=== PATIENT | male | born 1970 | race Two or more races ===

== ENCOUNTER 2020-11-13 16:29 | Inpatient (IN) | payer OTHER ==
[~2020-11-13] VITALS: Ht 177.8 cm; Wt 107.1 kg
[2020-11-13] MEDS ORDERED: fentaNYL CITRATE 100 MCG/2 ML VL ONE (16:38)
[2020-11-13] MEDS ORDERED: ANGIOMAX 250 MG VIAL IV ONE (16:38)
[2020-11-13] MEDS ORDERED: MIDAZOLAM HCL 1MG/1ML-2 ML VIAL ONE (16:38)
[2020-11-13] MEDS ORDERED: ATROPINE SULF 1 MG/10ml SYR ONE (16:38)
[2020-11-13] MEDS ORDERED: SODIUM CHL 0.9% 50 ML ONE (16:39)
[2020-11-13] MEDS ORDERED: EPINEPHrine HCL 1 MG/10 ML SYRG ONE (16:39)
[2020-11-13] MEDS ORDERED: HEPARIN SODIUM (PORCINE) 5000 UNITS/ML 1ML VIAL IV ONE (16:45)
[2020-11-13] MEDS ORDERED: NITROGLYCERIN 0.4 MG SL TAB SL ONE (16:45)
[2020-11-13] MEDS ORDERED: ONDANSETRON HCL 4 MG/2 ML VIAL IV ONE (16:45)
[2020-11-13] MEDS ORDERED: MORPHINE SULFATE 4 MG/ML SYR/VIAL IV ONE (16:45)
[2020-11-13] MEDS ORDERED: LIDOCAINE 2%HCL (LOCAL ANESTH.) INJ 20ML MDV ONE (16:48)
[2020-11-13] MEDS ORDERED: IOHEXOL 350 MG/ML 100ML IJ ONE (16:48)
[2020-11-13] MEDS ORDERED: TICAGRELOR 90 MG TAB ONE (17:11)
[2020-11-13 17:17] LABS: Basophils # (auto) 0.1 10 ^3/uL (0-0.2); Basophils % (auto) 0.5 % (0.0-2.0); Eosinophils # (auto) 0.3 10 ^3/uL (0-0.8); Hematocrit 45.2 % (41.0-53.0); Hemoglobin 15.2 g/dL (13.5-17.5); Lymphocytes # (auto) 2.2 10 ^3/uL (0.4-5.4); Lymphocytes % (auto) 14.2 % (10.0-50.0); Mean Corpuscular Hemoglobin 31.9 pg (28.0-32.0); Mean Corpuscular Hgb Conc. 33.7 g/dL (32.0-36.0); Mean Corpuscular Volume 94.6 fL (80.0-100.0); Monocytes # (auto) 0.7 10 ^3/uL (0-1.3); Monocytes % (auto) 4.8 % (0.0-12.0); Neutrophils # (auto) 12.2 10 ^3/uL (1.6-8.6); Neutrophils % (auto) 78.5 % (37.0-80.0); Platelet Count (auto) 317 10^3/uL (140-450); Red Blood Cells 4.77 10^6/uL (4.5-5.90); Red Cell Distribution Width 13.9 % (11.8-14.3); White Blood Cell 15.6 10^3/uL (4.4-10.8)
[2020-11-13] MEDS ORDERED: METOCLOPRAMIDE HCL 5MG/ml INJ 2ml VIAL ONE (17:20)
[2020-11-13 17:33] LABS: Albumin 4.1 g/dL (3.4-5.0); Calcium 9.5 mg/dL (8.5-10.1); Magnesium 2.3 mg/dL (1.6-2.6); Potassium 3.4 mmol/L (3.5-5.1)
[2020-11-13 17:38] LABS: BUN/Creatinine Ratio 13.8; Bilirubin, Total 0.4 mg/dL (0.2-1.0); Total Protein 7.9 g/dL (6.4-8.2)
[2020-11-13 17:39] LABS: INR 0.95 (0.9-1.15); Partial Thromboplastin Time 28.9 sec (23.0-31.2)
[2020-11-13 17:45] VITALS: BP 113/78
[2020-11-13 18:00] VITALS: BP 106/66
[2020-11-13 18:15] VITALS: BP 104/67
[2020-11-13] MEDS ORDERED: MORPHINE SULF INJ 2 MG/ML SYRINGE 1ML IV PRN (18:15)
[2020-11-13 18:30] VITALS: BP 109/73
[2020-11-13 20:00] VITALS: BP 115/75
[2020-11-13] MEDS: TICAGRELOR 90 MG TAB PO SCH (21:31)
[2020-11-13] MEDS: SODIUM CHLOR 0.9% PF (SALINE LOCK) 10ML VIAL/SYR IV SCH (21:31)
[2020-11-13 21:56] LABS: Basophils # (auto) 0.1 10 ^3/uL (0-0.2); Basophils % (auto) 0.5 % (0.0-2.0); Eosinophils # (auto) 0.2 10 ^3/uL (0-0.8); Eosinophils % (auto) 1.3 % (0.0-7.0); Hematocrit 43.7 % (41.0-53.0); Hemoglobin 14.8 g/dL (13.5-17.5); Lymphocytes # (auto) 2.3 10 ^3/uL (0.4-5.4); Lymphocytes % (auto) 18.2 % (10.0-50.0); Mean Corpuscular Hgb Conc. 33.9 g/dL (32.0-36.0); Mean Corpuscular Volume 94.5 fL (80.0-100.0); Monocytes # (auto) 0.6 10 ^3/uL (0-1.3); Monocytes % (auto) 4.5 % (0.0-12.0); Neutrophils # (auto) 9.4 10 ^3/uL (1.6-8.6); Neutrophils % (auto) 75.5 % (37.0-80.0); Nucleated Red Blood Cells % 0.2 %; Platelet Count (auto) 299 10^3/uL (140-450); Red Blood Cells 4.62 10^6/uL (4.5-5.90); Red Cell Distribution Width 13.8 % (11.8-14.3); White Blood Cell 12.4 10^3/uL (4.4-10.8)
[2020-11-13 22:00] VITALS: BP 109/64
[2020-11-13 22:05] LABS: Potassium 3.9 mmol/L (3.5-5.1)
[2020-11-13 22:25] LABS: Albumin 3.8 g/dL (3.4-5.0); BUN/Creatinine Ratio 12.9; Bilirubin, Total 0.4 mg/dL (0.2-1.0); Magnesium 2.4 mg/dL (1.6-2.6); Total Protein 7.4 g/dL (6.4-8.2)
[2020-11-14 05:00] VITALS: BP 133/72
[2020-11-14] MEDS: SODIUM CHLOR 0.9% PF (SALINE LOCK) 10ML VIAL/SYR IV SCH ×2 (05:13→15:13)
[2020-11-14 08:00] VITALS: BP 148/82
[2020-11-14 08:36] VITALS: BP 110/72
[2020-11-14] MEDS: TICAGRELOR 90 MG TAB PO SCH (09:09)
[2020-11-14] MEDS ORDERED: ATORVASTATIN 20 MG TAB PO SCH (10:00)
[2020-11-14] MEDS ORDERED: FAMOTIDINE INJECTION 40 MG in SODIUM CHL 0.9% 100 ML IV SCH (10:00)
[2020-11-14] MEDS ORDERED: CARVEDILOL 3.125 MG TAB PO SCH (10:00)
[2020-11-14] MEDS ORDERED: FAMOTIDINE (10MG/ML) 2ML VL IV SCH (10:00)
[2020-11-14] MEDS ORDERED: ASPirin 81 mg TAB PO SCH (10:00)
[2020-11-14 12:30] VITALS: BP 100/60
[2020-11-14] MEDS ORDERED: CLOPIDOGREL 300 MG TAB PO ONE (15:15)
[2020-11-14 15:16] VITALS: BP 100/67
== END 2020-11-14 15:46 | disposition home or self-care (01) | DRG 247 ==
LOC: ER 16:29 → EDBD 16:29 → ER 16:47 → TELE 18:12 → TELE-EAST 18:45
PROVIDERS: ADMIT Internal Medicine Cardiovascular Disease; ATTEND Internal Medicine Cardiovascular Disease
PROC: 027036Z Dilation of Coronary Artery, One Artery with Three Drug-eluting Intraluminal Devices, Percutaneous Approach (ICD-10-PCS; principal; 2020-11-13)
PROC: 4A023N7 Measurement of Cardiac Sampling and Pressure, Left Heart, Percutaneous Approach (ICD-10-PCS; 2020-11-13)
PROC: B211YZZ Fluoroscopy of Multiple Coronary Arteries using Other Contrast (ICD-10-PCS; 2020-11-13)
DX: I21.19 ST elevation (STEMI) myocardial infarction involving other coronary artery of inferior wall (principal); F17.210 Nicotine dependence, cigarettes, uncomplicated; E78.5 Hyperlipidemia, unspecified; Z20.822 Contact with and (suspected) exposure to COVID-19; Z80.8 Family history of malignant neoplasm of other organs or systems
CPT/HCPCS: 36415; 71045; 80053; 80061; 83735; 83880; 84484; 85025; 85610; 85730; 86850; 86900; 86901; 87426; 93005; 93306; 96374; 96375; 99152; 99153; 99291; C1874; C1887; G0378; J2250; J2405; J3490